=== PATIENT | male | born 1990 | race Caucasian/White ===

== ENCOUNTER 2019-06-11 20:35 | Emergency (ER) | payer OTHER ==
[~2019-06-11 20:35] MED LIST: AMOX-559 PO; HYDR2TAB74 PO; LOR5/325 PO
[2019-06-11 20:39] VITALS: BP 143/88
--- NOTE | 2019-06-11 20:44 | ER Report ---
History and Physical Time Seen By MD: 20:40 Hx. of Stated Complaint: pt got right hand caught in post bounder last . went to put his boots on today, had severe pain. thinks hand might be broken HPI/ROS CHIEF COMPLAINT: hand and wrist pain, injury HISTORY OF PRESENT ILLNESS: This is a 29 year old male. He was working and hand was hit hard by a post-pounder. Has had pain since then, but pain has worsened over the last 48 hours. Pain in hand and into wrist. Has been having some numbness of the index and 3rd finger. Worsens with movement and with trying to use the hand. Severe pain with movement. Worried about possible fracture. Allergies: Coded Allergies: No Known Drug Allergies (Unverified , 10/12/15) Home Meds Active Scripts Oxycodone Hcl/Acetaminophen (PERCOCET 5-325 MG TABLET) 1 Each Tablet, 1 EACH PO Q4H PRN for PAIN, #12 TAB 0 Refills Prov:SERGIO MONTEJO MD 06/11/19 Discontinued Scripts Hydromorphone Hcl (DILAUDID) 2 Mg Tablet, 2 MG PO Q4H PRN for PAIN, #10 Prov:DORIS WONG DO 10/12/15 Hydrocodone Bit/Acetaminophen (HYDROCODON-ACETAMINOPHEN 5-325) 1 Each Tablet, 1 EACH PO Q4-6H PRN for PAIN, #12 TAB 0 Refills TAKE ONE TABLET BY MOUTH EVERY 4-6 HOURS NEEDED FOR PAIN Prov:SERGIO MONTEJO MD 10/12/15 Reviewed Nurses Notes: Yes Hx Smoking: No Smoking Status: Never Smoker Constitutional Vital Sign - Last 24 Hours 06/11/19 20:39 Temp 99.9 Pulse 98 Resp 18 B/P (MAP) 143/88 Pulse Ox 91 Physical Exam General: Alert, mild distress due to pain. Musculoskeletal: Pain mostly in hand with palpation, somewhat into radial wrist as well. No pain in palpation of fingers, but movement of fingers hurts worse. Neuro: Can move hand, wrist, fingers with pain. Normal sensation with some tingling in 2nd and 3rd fingers at this time. Cardio: Normal cap refill and pulses. Skin: No breakdown. Medical Decision Making EKG/Imaging Imaging XR WRIST 3 OR MORE VIEWS RT Indication: Pain. Injury. Comparison: Examination is reviewed in conjunction with today's right hand images. Findings: 3 views of the right wrist are obtained. Distal radius and distal ulna appear unremarkable. There is soft tissue swelling along the dorsum of the wrist which extends to the dorsum of the hand. As seen and described on today's hand examination, there is a lucent lesion within the ulnar base of the second metacarpal. There is a suspected pathologic fracture through this lesion. Correlate with site of focal pain. Differential includes an enchondroma versus a giant cell tumor. Joint spaces are maintained at the wrist. IMPRESSION: 1. Lucent lesion within the base of the right hand second metacarpal with a suspected pathologic fracture with overlying soft tissue swelling. Correlate with the site of patient symptoms. Differential would include an enchondroma versus a giant cell tumor. Further workup and orthopedic consultation is recommended. Report Dictated By: Conrad Jain at 06/11/2019 9:42 PM HAND COMPLETE RIGHT Indication: Pain. Injury 4 days ago. Comparison: None Available. Findings: There is a lucent, well circumscribed lesion identified within the ulnar base of the second metacarpal. This extends to the subchondral bone at the articular surface of the second carpometacarpal joint. There is a suspected pathologic fracture identified through this a lucent lesion. This lesion appears fairly well circumscribed. In this location, this may represent an enchondroma. Possibility of a giant cell tumor should also be considered. There is overlying soft tissue swelling. Correlate with the site of focal pain. No other osseous abnormality. Joint spaces are maintained. Impression: 1. Lytic/lucent lesion within the ulnar base of the right hand second metacarpal with a suspected minimally displaced pathologic fracture. There is overlying soft tissue swelling. Differential in this location would include an enchondroma versus a giant cell tumor. Orthopedic consultation recommended. Report Dictated By: Conrad Jain at 06/11/2019 9:36 PM ED Course/Re-evaluation ED Course Initially treated with Lortab, no improvement. Morphing IM and Toradol IM helped pain. Splint applied., felt better. Reviewed the imaging with the patient. Procedure: Volar slab splint placement. A half-cast/splint as noted above was applied. After application of the half- cast, I returned and re-examined the patient. The half-cast was adequately immobilizing the joint and distally the patient's circulation and sensation was intact. This was applied by the fire technology instructor. Decision to Disposition Date: Jun 11, 2019 Decision to Disposition Time: 23:02 Depart Departure Latest Vital Signs Vital Signs Date Time Temp Pulse Resp B/P (MAP) Pulse Ox O2 Delivery O2 Flow Rate FiO2 06/11/19 20:39 99.9 98 18 143/88 91 Impression: Primary Impression: Metacarpal bone fracture Condition: Improved Disposition: HOME OR SELF-CARE New Scripts Oxycodone Hcl/Acetaminophen (PERCOCET 5-325 MG TABLET) 1 Each Tablet 1 EACH PO Q4H PRN for PAIN, #12 TAB 0 Refills Prov: SERGIO MONTEJO MD 06/11/19 Patient Instructions: Hand Fracture (ED) Additional Instructions: Ibuprofen 200mg over the counter tablets, take 4 tablets three times a day with food. Percocet 5/325, one every 4 hours as needed for pain. Apply ice 20 minutes every 1-2 hours while awake. Wear the splint until you see orthopedic surgery. Call [facility] tomorrow morning to schedule a follow-up visit with them. Rest the injured area, keep it elevated while at rest. Problem Qualifiers Primary Impression: Metacarpal bone fracture Encounter type: initial encounter Metacarpal bone: second Fracture type: closed Metacarpal location: base Fracture alignment: nondisplaced Laterality: right Qualified Codes: S62.340A - Nondisplaced fracture of base of second metacarpal bone, right hand, initial encounter for closed fracture SERGIO MONTEJO MD Jun 11, 2019 20:44
--- NOTE | 2019-06-11 21:49 | RADIOLOGY IMAGING REPORT ---
FACILITY: [facility] [place] PATIENT NAME: Lorena Shields : 1990 MR: [id number] V: [id number] EXAM DATE: ORDERING PHYSICIAN: SERGIO MONTEJO TECHNOLOGIST: Location: [facility] Patient: Lorena Shields : 1990 Visit/Account:[id number] Date of Sevice: 06/11/2019 HAND COMPLETE RIGHT Indication: Pain. Injury 4 days ago. Comparison: None Available. Findings: There is a lucent, well circumscribed lesion identified within the ulnar base of the second metacarpa l. This extends to the subchondral bone at the articular surface of the second carpometacarpal joint . There is a suspected pathologic fracture identified through this a lucent lesion. This lesion jean ears fairly well circumscribed. In this location, this may represent an enchondroma. Possibility of a giant cell tumor should also be considered. There is overlying soft tissue swelling. Correlate w ith the site of focal pain. No other osseous abnormality. Joint spaces are maintained. Impression: 1. Lytic/lucent lesion within the ulnar base of the right hand second metacarpal with a suspected min imally displaced pathologic fracture. There is overlying soft tissue swelling. Differential in this location would include an enchondroma versus a giant cell tumor. Orthopedic consultation shantell smart Report Dictated By: Conrad Jain at 06/11/2019 9:36 PM Report E-Signed By: Conrad Jain at 06/11/2019 9:42 PM WSN:[email or web address]
--- NOTE | 2019-06-11 21:53 | RADIOLOGY IMAGING REPORT ---
FACILITY: [facility] [place] PATIENT NAME: Lorena Shields : 1990 MR: [id number] V: [id number] EXAM DATE: ORDERING PHYSICIAN: SERGIO MONTEJO TECHNOLOGIST: Location: [facility] [place] Patient: Lorena Shields : 1990 Visit/Account:[id number] Date of Sevice: 06/11/2019 XR WRIST 3 OR MORE VIEWS RT Indication: Pain. Injury. Comparison: Examination is reviewed in conjunction with today's right hand images. Findings: 3 views of the right wrist are obtained. Distal radius and distal ulna appear unremarkable. There i s soft tissue swelling along the dorsum of the wrist which extends to the dorsum of the hand. As see n and described on today's hand examination, there is a lucent lesion within the ulnar base of the se cond metacarpal. There is a suspected pathologic fracture through this lesion. Correlate with site of focal pain. Differential includes an enchondroma versus a giant cell tumor. Joint spaces are sheron ntained at the wrist. IMPRESSION: 1. Lucent lesion within the base of the right hand second metacarpal with a suspected pathologic frac ture with overlying soft tissue swelling. Correlate with the site of patient symptoms. Differential would include an enchondroma versus a giant cell tumor. Further workup and orthopedic consultation is recommended. Report Dictated By: Conrad Jain at 06/11/2019 9:42 PM Report E-Signed By: Conrad Jain at 06/11/2019 9:45 PM WSN:[email or web address]
[2019-06-11] MEDS ORDERED: APAP/HYDROCODONE 325/5 TAB PO ONE (22:15)
[2019-06-11] MEDS ORDERED: KETOROLAC 60 MG/2 ML VIAL IM ONE (23:05)
[2019-06-11] MEDS ORDERED: oxyCODONE/ACETAMIN 5/325MG TH 2 TAB/BOTTLE PO ONE (23:05)
[2019-06-11] MEDS ORDERED: MORPHINE 10 MG/ML SYR IM ONE (23:05)
[2019-06-11] MEDS ORDERED: OXYC-865 PO (23:08)
[2019-06-11] MEDS ORDERED: MORPHINE 2 MG/ML SYR ONE (23:14)
== END 2019-06-11 23:40 | disposition home or self-care (01) ==
LOC: ER 21:17
DX: S62.340A Nondisplaced fracture of base of second metacarpal bone, right hand, initial encounter for closed fracture (principal)
CPT/HCPCS: 29125; 73110; 73130; 96372; 99284; J1885; J2270